=== PATIENT | female | born 1975 | race Caucasian/White ===

== ENCOUNTER 2016-11-17 07:34 | Emergency (ER) | payer SELFPAY ==
--- NOTE | 2016-11-17 10:10 | RAD ---
HISTORY: Headache COMPARISONS: March 09, 2005 TECHNIQUE: Multiple contiguous axial CT scans were obtained of the head without intravenous contrast. FINDINGS: HEMORRHAGE/INFARCT: There is no hemorrhage or acute infarct. MASSES/SHIFT: There is no mass or shift. EXTRA-AXIAL SPACES: There are no extra-axial fluid collections. SULCI AND VENTRICLES: The sulci and ventricles are normal in size and position for the patient's stated age. CEREBRUM: There are no focal parenchymal abnormalities. BRAINSTEM: There are no focal parenchymal abnormalities. CEREBELLUM: There are no focal parenchymal abnormalities. VESSELS: The vessels are grossly normal. PARANASAL SINUSES: The paranasal sinuses are clear. ORBITS: The orbits are unremarkable. BONES AND SOFT TISSUE: No bone or soft tissue abnormalities are noted. OTHER: None IMPRESSION: NO ACUTE INTRACRANIAL PATHOLOGY.
[2016-11-17] MEDS ORDERED: Acetaminophen TAB* 325 MG PO ONE (10:49)
[2016-11-17 11:14] VITALS: BP 121/78
--- NOTE | 2016-11-17 18:30 | ED ---
China Fowler SooYoung, scribed for Dionisio Chacon MD on 11/17/16 at 0947 . Head Injury - HPI Summary HPI Summary: A 41 y/o F presents to ED with c/o head trauma onset approx one week ago. Associated sx: swelling and contusion to front head, lightheadedness, feels off balance. Denies n/v, visual changes, neck pain. Pt rates the pain as 8 out of 10. - History Of Current Complaint Chief Complaint: EDHeadInjury Stated Complaint: HEADACE , INJURY AT WORK Time Seen by Provider: 11/17/16 09:43 Hx Obtained From: Patient Onset/Duration: Started Days Ago, Still Present Severity Currently: Moderate Severity Initially: Moderate Pain Intensity: 8 Pain Scale Used: 0-10 Numeric Location of Head Injury: Frontal Associated Signs And Symptoms: Swelling, Bruising, Other: - pos: lightheadedness , feels off balance; neg: n/v, visual changes, neck pain. - Allergies/Home Medications Allergies/Adverse Reactions: Allergies Allergy/AdvReac Type Severity Reaction Status Date / Time Penicillins [PCN] Allergy Hives Verified 10/01/15 06:39 PMH/Surg Hx/FS Hx/Imm Hx Previously Healthy: No Endocrine/Hematology History: Reports: Hx Diabetes - INSULIN DEPENDENT Cardiovascular History: Reports: Hx Angina, Hx Hypercholesterolemia, Other Cardiovascular Problems/Disorders - Irregular heart rhythm, pt seeing sales engineering manager tomorrow for follow-up Respiratory History: Reports: Hx Asthma, Hx Sleep Apnea Denies: Hx Chronic Obstructive Pulmonary Disease (COPD) GI History: Reports: Hx Gastroesophageal Reflux Disease - ON MEDS PT. STATES CONTROLLED, Other GI Disorders - Hx GERD Sensory History: Reports: Hx Contacts or Glasses Denies: Hx Hearing Aid Opthamlomology History: Reports: Hx Contacts or Glasses - Surgical History Hx Anesthesia Reactions: No Infectious Disease History: No Infectious Disease History: Denies: Traveled Outside the [place] in Last 30 Days - Family History Known Family History: Positive: Cardiac Disease - Social History Occupation: Employed Full-time Lives: Alone Alcohol Use: None Hx Substance Use: No Substance Use Type: Reports: None Hx Tobacco Use: Yes Smoking Status (MU): Former Smoker Review of Systems Negative: Other - neg: vision changes Negative: Vomiting, Nausea Positive: Edema - R-side of forehead. Negative: Other - neg: neck pain Neurological: Other - pos: lightheadedness, unsteady gait All Other Systems Reviewed And Are Negative: Yes Physical Exam - Summary Physical Exam Summary: VITAL SIGNS: Reviewed. GENERAL: Patient is a well-developed and nourished FEMALE who is lying comfortable in the stretcher. Patient is not in any acute respiratory distress. HEAD AND FACE: Resolving hematoma in R frontal area. No skull depressions. No sinus tenderness. EYES: PERRLA, EOMI x 2, No injected conjunctiva, no nystagmus. EARS: Hearing grossly intact. Ear canals and tympanic membranes are within normal limits. MOUTH: Oropharynx within normal limits. NECK: Supple, trachea is midline, no adenopathy, no JVD, no carotid bruit, no c- spine tenderness, neck with full ROM. CHEST: Symmetric, no tenderness at palpation LUNGS: Clear to auscultation bilaterally. No wheezing or crackles. CVS: Regular rate and rhythm, S1 and S2 present, no murmurs or gallops appreciated. ABDOMEN: Soft, non-tender. No signs of distention. No rebound, no guarding, and no masses palpated. Bowel sounds are normal. EXTREMITIES: FROM in all major joints, no edema, no cyanosis or clubbing. NEURO: Alert and oriented x 3. No acute neurological deficits. Speech is normal and follows commands. SKIN: Dry and warm Triage Information Reviewed: Yes Vital Signs On Initial Exam: Initial Vitals Temp Pulse Resp BP Pulse Ox 98.4 F 53 20 132/74 99 11/17/16 07:41 11/17/16 07:41 11/17/16 07:41 11/17/16 07:41 11/17/16 07:41 Vital Signs Reviewed: Yes Diagnostics - Vital Signs Vital Signs Temp Pulse Resp BP Pulse Ox 11/17/16 07:41 98.4 F 53 20 132/74 99 - Laboratory Lab Statement: Any lab studies that have been ordered have been reviewed, and results considered in the medical decision making process. - CT BRAIN CT Interpretation: No Acute Changes - IMPRESSION: No acute intracranial pathology. ED physician has reviewed this radiology report and agrees. CT Interpretation Completed By: Radiologist Head Injury Course/Dx Course Of Treatment: A 41 y/o F presents to ED with c/o head trauma onset approx one week ago. Associated sx: swelling and contusion to front head, lightheadedness, feels off balance. Denies n/v, visual changes, neck pain. Pt rates the pain as 8 out [address] Head CT is negative for acute intracranial pathology. Pt given Tylenol for pain and will be D/C home with f/u PCP. Given instruction for head contusion symptoms. She ambulated out of the ED. Pt is hemodynamically stable and A&Ox3. - Diagnoses Differential Diagnosis/HQI/PQRI: Cerebral Contusion, Concussion Without LOC, Contusion, Intracranial Bleed, Orbital Fracture, Skull Fracture Provider Diagnoses: Head contusion Discharge - Discharge Plan Condition: Stable Disposition: HOME Patient Education Materials: Scalp Contusion in Adults (ED) Referrals: Milly Fernandez MD [Primary Care Provider] - Additional Instructions: Use Tylenol for pain. Follow up with your primary care provider in 3 days. Please return to ED if you experience new or worsening symptoms. The documentation as recorded by the China dorman SooYoung accurately reflects the service I personally performed and the decisions made by me, Dionisio Chacon MD.
== END 2016-11-17 11:13 | disposition home or self-care (01) ==
LOC: ED 07:34
DX: S00.93XA Contusion of unspecified part of head, initial encounter (principal); R42 Dizziness and giddiness; X58.XXXA Exposure to other specified factors, initial encounter; Y93.9 Activity, unspecified; Y92.9 Unspecified place or not applicable
CPT/HCPCS: 70450; 99282; A9270-GY

== ENCOUNTER 2017-03-20 22:07 | Emergency (ER) | payer BC ==
[2017-03-20] MEDS ORDERED: NS 0.9% 1000 ML* 1,000 ML IV ONE (23:42)
[2017-03-20] MEDS ORDERED: Ketorolac INJ* 30 MG/ML 1 ML VIAL IV PUSH PRN (23:42)
[2017-03-21 00:15] LABS: ABS Basophils 0 10^3/ul (0-0.2); ABS Eosinophils 0.1 10^3/ul (0-0.6); ABS Lymphocytes 2.3 10^3/ul (1.0-4.8); ABS Monocytes 0.4 10^3/ul (0-0.8); ABS Neutrophils 2.1 10^3/ul (1.5-7.7); ABS Nucleated RBC 0 10^3/ul; Eosinophil % 1.7 % (0-6); Hematocrit 39 % (35-47); Hemoglobin 12.9 g/dl (12.0-16.0); Mean Corpuscular HGB Conc 33 g/dl (31-36); Mean Corpuscular Hemoglobin 31 pg (27-31); Mean Corpuscular Volume 92 fL (80-97); Mean Platelet Volume 9 um3 (7.4-10.4); Nucleated Red Blood Cells % 0.1; Platelet Count 195 10^3/ul (150-450); Red Blood Count 4.22 10^6/ul (4.0-5.4); Red Cell Distribution Width 14 % (10.5-15); White Blood Count 4.9 10^3/ul (3.5-10.8)
[2017-03-21 00:23] LABS: INR 0.96 (0.77-1.02)
[2017-03-21 00:31] LABS: EGFR Non-African American 109.1 (>60)
[2017-03-21] MEDS ORDERED: Iodixanol* (CONTRAST) 320 MG/ML 100 ML SDV IV ONE (00:46)
[2017-03-21 03:05] VITALS: BP 123/64
--- NOTE | 2017-03-21 09:46 | RAD ---
Indication: LEFT flank pain when breathing. Chest pain. Comparison: Chest CT of the same date and March 30, 2016 chest radiograph. Technique: Upright AP 0045 hours Report: Clear lungs and pleural spaces. Negative for pneumothorax. The heart, pulmonary vasculature, and mediastinal contours are unremarkable. Unremarkable osseous structures and soft tissue contours. IMPRESSION: No evidence for acute intrathoracic disease.
--- NOTE | 2017-03-21 09:54 | RAD ---
INDICATION: 1 week LEFT side pain following potential injury. Question pulmonary embolism. COMPARISON: Chest radiograph of the same date TECHNIQUE: Multidetector CT images were obtained from the lung apices to the upper abdomen with 81 mL Visipaque 320 IV contrast. Pulmonary angiogram protocol. Multiplanar reformation including with maximum intensity projection. REPORT: Minimal LEFT basilar dependent atelectasis. The lungs and pleural spaces are otherwise clear. Negative for pneumothorax. Asymmetric enlargement of the RIGHT thyroid lobe. Mild residual thymic tissue at the anterior mediastinum. 0.9 cm short axis precarinal lymph node within normal limits. Smaller bilateral hilar lymph nodes. Negative for thoracic lymphadenopathy. Negative for cardiomegaly or pericardial effusion. Normal diameter thoracic aorta with mild calcific plaque. No evidence for aortic dissection. No filling defects are identified from the main to the subsegmental pulmonary arteries to indicate presence of a pulmonary embolism. Unremarkable Limited images of the upper abdomen. No thoracic fractures or suspicious osseous lesions evident. No soft tissue plane hematoma evident. IMPRESSION: 1. No evidence for pulmonary embolism. 2. No evidence for pneumonia. Minimal LEFT basilar dependent subsegmental atelectasis. 3. Incidental note of asymmetric prominence of the RIGHT thyroid lobe. Consider follow-up nonemergent thyroid ultrasound for further assessment if not previously performed. No prior thyroid [place] [facility]
--- NOTE | 2017-03-21 19:58 | ED ---
Trung Fowler Tecjoon, scribed for Nicholas Chaves MD on 03/20/17 at 2343 . HPI Chest Pain - HPI Summary HPI Summary: This patient is a 41 year old female presenting to [facility] accompanied by with a chief complaint of left flank/chest pain since 1 week ago, worsening yesterday. Patient states the pain came " from moving something, think I might have chipped something". The pain is rated 8/10 in severity. Symptoms aggravated by deep breaths. Symptoms alleviated by nothing - History of Current Complaint Chief Complaint: EDChestWallPain Time Seen by Provider: 03/20/17 23:33 Hx Obtained From: Patient Onset/Duration: Started Weeks Ago - 1, Still Present, Worse Since - yesterday Timing: Constant Initial Severity: Moderate Current Severity: Moderate Pain Intensity: 8 Pain Scale Used: 0-10 Numeric Chest Pain Location: Left Lateral Aggravating Factor(s): Deep Breaths Alleviating Factor(s): Nothing - Additional Pertinent History Primary Care Physician: [id number] - Allergy/Home Medications Allergies/Adverse Reactions: Allergies Allergy/AdvReac Type Severity Reaction Status Date / Time Penicillins Allergy Hives Verified 03/20/17 23:48 PMH/Surg Hx/FS Hx/Imm Hx Previously Healthy: No Endocrine/Hematology History: Reports: Hx Diabetes - INSULIN DEPENDENT Denies: Hx Anticoagulant Therapy Cardiovascular History: Reports: Hx Angina, Hx Hypercholesterolemia, Other Cardiovascular Problems/Disorders - Irregular heart rhythm, pt seeing hospice clinical supervisor tomorrow for follow-up Respiratory History: Reports: Hx Asthma, Hx Sleep Apnea Denies: Hx Chronic Obstructive Pulmonary Disease (COPD) GI History: Reports: Hx Gastroesophageal Reflux Disease - ON MEDS PT. STATES CONTROLLED, Other GI Disorders - Hx GERD Sensory History: Reports: Hx Contacts or Glasses Denies: Hx Hearing Aid Opthamlomology History: Reports: Hx Contacts or Glasses - Surgical History Hx Anesthesia Reactions: No Infectious Disease History: No Infectious Disease History: Denies: Traveled Outside the [place] in Last 30 Days - Family History Known Family History: Positive: Cardiac Disease - Social History Lives: With Family Alcohol Use: None Hx Substance Use: No Substance Use Type: Reports: None Hx Tobacco Use: Yes Smoking Status (MU): Former Smoker Review of Systems Negative: Fever Positive: Chest Pain Positive: flank pain All Other Systems Reviewed And Are Negative: Yes Physical Exam - Summary Physical Exam Summary: VITAL SIGNS: Reviewed. GENERAL: Patient is a well-developed and nourished female who is lying comfortable in the stretcher. Patient is not in any acute respiratory distress. HEAD AND FACE: No signs of trauma. No ecchymosis, hematomas or skull depressions. No sinus tenderness. EYES: PERRLA, EOMI x 2, No injected conjunctiva, no nystagmus. EARS: Hearing grossly intact. Ear canals and tympanic membranes are within normal limits. MOUTH: Oropharynx within normal limits. NECK: Supple, trachea is midline, no adenopathy, no JVD, no carotid bruit, no c- spine tenderness, neck with full ROM. CHEST: Tenderness over left lower chest well LUNGS: Clear to auscultation bilaterally. No wheezing or crackles. CVS: Regular rate and rhythm, S1 and S2 present, no murmurs or gallops appreciated. ABDOMEN: Soft, non-tender. No signs of distention. No rebound no guarding, and no masses palpated. Bowel sounds are normal. EXTREMITIES: FROM in all major joints, no edema, no cyanosis or clubbing. NEURO: Alert and oriented x 3. No acute neurological deficits. Speech is normal and follows commands. SKIN: Dry and warm Triage Information Reviewed: Yes Vital Signs On Initial Exam: Initial Vitals Temp Pulse Resp BP Pulse Ox 98.0 F 51 16 113/70 99 03/20/17 22:10 03/20/17 22:10 03/20/17 22:10 03/20/17 22:10 03/20/17 22:10 Vital Signs Reviewed: Yes Diagnostics - Vital Signs Vital Signs Temp Pulse Resp BP Pulse Ox 03/20/17 22:10 98.0 F 51 16 113/70 99 - Laboratory Result Diagrams: 03/21/17 00:01 03/21/17 00:01 Lab Statement: Any lab studies that have been ordered have been reviewed, and results considered in the medical decision making process. - CT CT Chest CT Interpretation: No Acute Changes - CT Chest reveals, per radiologist, IMPRESSION: No Acute Process. ED Physician has reviewed this report. CT Interpretation Completed By: Radiologist - EKG 1546 Cardiac Rate: Bradycardia EKG Rhythm: Sinus Bradycardia - 52 BPM EKG Interpretation: Sinus Bradycardia, Normal axis. Normal interval. No ischemic changes Chest Pain Course/Dx - Course Course Of Treatment: This patient is a 41 year old female presenting to [facility] accompanied by with a chief complaint of left flank/chest pain since 1 week ago, worsening yesterday. Bloodwork Obtained. Urinalysis Obtained. In the ED course the patient was given Toradol, Iodixanol. Patient will be discharged with a diagnosis of chest wall pain and follow up with PCP in 3 days. The patient is agreeable with this plan. - Diagnoses Provider Diagnoses: Chest wall pain Discharge - Discharge Plan Condition: Stable Disposition: HOME Patient Education Materials: Chest Wall Pain (ED) Referrals: Milly Fernandez MD [Primary Care Provider] - 3 Days Additional Instructions: Patient will be discharged with chest wall pain. Patient is advised to follow up with PCP in 3 days. Return to the ED for new or worsening symptoms. The documentation as recorded by the Trung dorman Tecjoon accurately reflects the service I personally performed and the decisions made by Aanstacio demarco Abdul, MD.
== END 2017-03-21 03:12 | disposition home or self-care (01) ==
LOC: ED 22:07
DX: R07.89 Other chest pain (principal); Z87.891 Personal history of nicotine dependence; Z88.0 Allergy status to penicillin
CPT/HCPCS: 36415; 71045; 71275; 80053; 83735; 84484; 84702; 85025; 85379; 85610; 85730; 93005; 96361; 96374; 99284; Q9967

== ENCOUNTER 2017-06-15 07:47 | Emergency (ER) | payer BC ==
[2017-06-15] MEDS ORDERED: Lidocaine 2% VISCOUS* 15 ML UDC PO ONE (09:00)
[2017-06-15] MEDS ORDERED: Lidocaine 2% VISCOUS* 15 ML UDC ONE (09:00)
[2017-06-15 09:29] LABS: ABS Basophils 0 10^3/ul (0-0.2); ABS Eosinophils 0.1 10^3/ul (0-0.6); ABS Lymphocytes 1.9 10^3/ul (1.0-4.8); ABS Monocytes 0.5 10^3/ul (0-0.8); ABS Neutrophils 4.8 10^3/ul (1.5-7.7); ABS Nucleated RBC 0 10^3/ul; Eosinophil % 0.7 % (0-6); Hematocrit 38 % (35-47); Lymphocyte % 26.2 % (25-47); Mean Corpuscular HGB Conc 34 g/dl (31-36); Mean Corpuscular Hemoglobin 31 pg (27-31); Mean Corpuscular Volume 90 fL (80-97); Mean Platelet Volume 9.7 um3 (7.4-10.4); Nucleated Red Blood Cells % 0; Platelet Count 192 10^3/ul (150-450); Red Blood Count 4.19 10^6/ul (4.0-5.4); Red Cell Distribution Width 13 % (10.5-15); White Blood Count 7.3 10^3/ul (3.5-10.8)
[2017-06-15] MEDS ORDERED: NS 0.9% 1000 ML* 1,000 ML IV ONE (10:27)
--- NOTE | 2017-06-15 10:41 | ED ---
Throat Pain/Nasal Congestion - HPI Summary HPI Summary: Pt here w/ Rt upper dental pain x weeks. Facial swelling x 2 days. Denies fever , chills, N/V/D, difficulty breathing or swallowing. Poor dentition and hasn't been to denitist serafin while but is in the process of making an appt. Took excederin prior to arrival today. - History of Current Complaint Hx Obtained From: Patient, Family/Frame Tender - male partner <Emely Doyle - Last Filed: 06/15/17 11:35> <Emma Myrick - Last Filed: 06/17/17 20:45> - History of Current Complaint Chief Complaint: EDDentalPain Time Seen by Provider: 06/15/17 08:11 - Allergies/Home Medications Allergies/Adverse Reactions: Allergies Allergy/AdvReac Type Severity Reaction Status Date / Time Penicillins Allergy Hives Verified 06/15/17 07:48 Home Medications: Home Medications Aspirin EC TAB* [Ecotrin EC Low Dose 81 MG*] 81 mg PO DAILY 06/15/17 [History Confirmed 06/15/17] Multivitamins/Minerals TAB* [Theragran/minerals TAB*] 1 tab PO DAILY 06/15/17 [ History Confirmed 06/15/17] PMH/Surg Hx/FS Hx/Imm Hx Previously Healthy: Yes Endocrine/Hematology History: Reports: Hx Diabetes - INSULIN DEPENDENT, Hx Thyroid Disease - syntroid Denies: Hx Anticoagulant Therapy, Hx Anemia Cardiovascular History: Reports: Hx Angina, Hx Hypercholesterolemia, 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 STATES CONTROLLED, Other GI Disorders - Hx GERD History: Denies: Hx Dialysis, Hx Renal Disease Sensory History: Reports: Hx Contacts or Glasses Denies: Hx Hearing Aid Opthamlomology History: Reports: Hx Contacts or Glasses - Surgical History Hx Anesthesia Reactions: No Infectious Disease History: No Infectious Disease History: Denies: Traveled Outside the [place] in Last 30 Days - Family History Known Family History: Positive: Cardiac Disease - Social History Occupation: Employed Full-time - [employer] Lives: With Family - male partner Alcohol Use: None Hx Substance Use: No Substance Use Type: Reports: None Hx Tobacco Use: Yes - not currently Smoking Status (MU): Former Smoker <Emely Doyle - Last Filed: 06/15/17 11:35> Review of Systems Constitutional: Negative Negative: Fever, Chills, Fatigue Eyes: Negative Positive: Dental Pain. Negative: Sore Throat, Ear Ache, Nasal Discharge Cardiovascular: Negative Respiratory: Negative Gastrointestinal: Negative Negative: Vomiting, Nausea Positive: no symptoms reported Musculoskeletal: Negative Skin: Negative Neurological: Negative Positive: Anxious All Other Systems Reviewed And Are Negative: Yes <Emely Doyle - Last Filed: 06/15/17 11:35> Physical Exam Triage Information Reviewed: Yes Vital Signs On Initial Exam: Initial Vitals Temp Pulse Resp BP Pulse Ox 98.0 F 62 14 126/71 100 06/15/17 07:50 06/15/17 07:50 06/15/17 07:50 06/15/17 07:50 06/15/17 07:50 Vital Signs Reviewed: Yes Appearance: Positive: Pain Distress - mild to moderate; generalized pallor; Skin: Positive: Warm, Skin Color Reflects Adequate Perfusion, Dry - no erythema over Rt side of face Eyes: Positive: Normal, EOMI, Conjunctiva Clear. Negative: Conjunctiva Inflammed, Discharge ENT: Positive: Hearing grossly normal, Pharynx normal, TMs normal, Uvula midline. Negative: Nasal congestion, Nasal drainage, Tonsillar swelling, Trismus, Muffled voice Dental: Positive: Gross Decay/Caries @ - multiple teeth, Abscess @ - Rt upper gingival area - multiple decaying teeth in the area Neck: Positive: Supple, Nontender, No Lymphadenopathy Respiratory/Lung Sounds: Positive: Clear to Auscultation, Breath Sounds Present. Negative: Stridor Cardiovascular: Positive: Normal, RRR <Emely Doyle - Last Filed: 06/15/17 11:35> Vital Signs On Initial Exam: Initial Vitals Temp Pulse Resp BP Pulse Ox 36.7 C 62 14 126/71 100 06/15/17 07:50 06/15/17 07:50 06/15/17 07:50 06/15/17 07:50 06/15/17 07:50 <Emma Myrick - Last Filed: 06/17/17 20:45> Diagnostics - Vital Signs Vital Signs Temp Pulse Resp BP Pulse Ox 06/15/17 10:23 40 90/39 99 06/15/17 10:22 34 99 06/15/17 10:20 68/36 06/15/17 07:50 98.0 F 62 14 126/71 100 - Laboratory Lab Results: Lab Results 06/15/17 06/15/17 06/15/17 Range/Units 09:15 09:15 09:15 WBC 7.3 (3.5-10.8) 10^3/ul RBC 4.19 (4.0-5.4) 10^6/ul Hgb 13.0 (12.0-16.0) g/dl Hct 38 (35-47) % MCV 90 (80-97) fL MCH 31 (27-31) pg MCHC 34 (31-36) g/dl RDW 13 (10.5-15) % Plt Count 192 (150-450) 10^3/ul MPV 9.7 (7.4-10.4) um3 Neut % (Auto) 66.1 (38-83) % Lymph % (Auto) 26.2 (25-47) % Ripley % (Auto) 6.5 (0-7) % Eos % (Auto) 0.7 (0-6) % Baso % (Auto) 0.5 (0-2) % Absolute Neuts (auto) 4.8 (1.5-7.7) 10^3/ul Absolute Lymphs (auto) 1.9 (1.0-4.8) 10^3/ul Absolute Monos (auto) 0.5 (0-0.8) 10^3/ul Absolute Eos (auto) 0.1 (0-0.6) 10^3/ul Absolute Basos (auto) 0 (0-0.2) 10^3/ul Absolute Nucleated RBC 0 10^3/ul Nucleated RBC % 0 C-Reactive Protein 6.07 H (< 5.00) mg/L Beta HCG, Quant < 0.60 mIU/mL Result Diagrams: 06/15/17 09:15 Lab Statement: Any lab studies that have been ordered have been reviewed, and results considered in the medical decision making process. <Emely Doyle - Last Filed: 06/15/17 11:35> - Vital Signs Vital Signs Temp Pulse Resp BP Pulse Ox 06/15/17 12:14 36.9 C 65 16 149/84 100 06/15/17 12:07 66 149/84 100 06/15/17 12:05 52 150/82 100 06/15/17 12:00 54 06/15/17 11:28 69 146/87 100 06/15/17 11:18 49 137/103 100 06/15/17 11:08 51 142/70 06/15/17 11:00 46 100 06/15/17 10:58 48 150/77 100 06/15/17 10:31 55 151/78 06/15/17 10:23 40 90/39 99 06/15/17 10:22 34 99 06/15/17 10:20 68/36 06/15/17 07:50 36.7 C 62 14 126/71 100 - Laboratory Lab Results: Lab Results 06/15/17 06/15/17 06/15/17 Range/Units 09:15 09:15 09:15 WBC 7.3 (3.5-10.8) 10^3/ul RBC 4.19 (4.0-5.4) 10^6/ul Hgb 13.0 (12.0-16.0) g/dl Hct 38 (35-47) % MCV 90 (80-97) fL MCH 31 (27-31) pg MCHC 34 (31-36) g/dl RDW 13 (10.5-15) % Plt Count 192 (150-450) 10^3/ul MPV 9.7 (7.4-10.4) um3 Neut % (Auto) 66.1 (38-83) % Lymph % (Auto) 26.2 (25-47) % Ripley % (Auto) 6.5 (0-7) % Eos % (Auto) 0.7 (0-6) % Baso % (Auto) 0.5 (0-2) % Absolute Neuts (auto) 4.8 (1.5-7.7) 10^3/ul Absolute Lymphs (auto) 1.9 (1.0-4.8) 10^3/ul Absolute Monos (auto) 0.5 (0-0.8) 10^3/ul Absolute Eos (auto) 0.1 (0-0.6) 10^3/ul Absolute Basos (auto) 0 (0-0.2) 10^3/ul Absolute Nucleated RBC 0 10^3/ul Nucleated RBC % 0 C-Reactive Protein 6.07 H (< 5.00) mg/L Beta HCG, Quant < 0.60 mIU/mL Result Diagrams: 06/15/17 09:15 Lab Statement: Any lab studies that have been ordered have been reviewed, and results considered in the medical decision making process. <Emma Myrick - Last Filed: 06/17/17 20:45> EENT Course/Dx - Course Course Of Treatment: Pt here for dental pain/swelling. Abscess identified. Topical lidocaine placed then <1cc 1% lidocaine injected into gingival area - pt was bearing down and did not tolerate well - tried to move my hand but no additional injury to area was observed (bleeding after injection was minimal nad she stopped bleeding within minutes). Shortly after injection she became lightheaded, diaphoretic, nauseous then felt urge to move her bowels. Blood pressure and heart rate dropped and so she was sent back into a flat lying position with a cool compress. An IV line was started and she received normal saline wide open. Additionally an EKG was ordered which revealed bradycardia but no changes from previous EKG. She improved within 10 minutes - color in her face returned, blood pressure increased as well as heart rate although she apparently always has low heart rate. She was able to sit up without dizziness , lightheadedness, nausea and reports she feels much better after resting. Retested the area and her gingiva to see if she was still anesthetized however she feels sharp so opted to avoid incision and drainage today. Cannot give her NSAIDs due to her bariatric status. Will start clindamycin along with chlorhexidine and provide tramadol for pain as she's had this in the past without difficulty. She does not appear to have any underlying cardiac pathology to have triggered her event today in fact is suspected that this was a response from a vasovagal reaction to her pain. <Emely Doyle - Last Filed: 06/15/17 11:35> <Emma Myrick - Last Filed: 06/17/17 20:45> - Diagnoses Provider Diagnoses: Pain, dental Discharge - Sign-Out/Discharge Documenting (check all that apply): Discharge/Admit/Transfer - Billing Disposition and Condition Condition: STABLE Disposition: HOME <Emely Doyle - Last Filed: 06/15/17 11:35> - Billing Disposition and Condition Condition: STABLE Disposition: HOME <Emma Myrick - Last Filed: 06/17/17 20:45> - Discharge Plan Condition: Stable Disposition: HOME Prescriptions: Chlorhexidine MOUTHWASH 0.12%* [Peridex Mouth Wash 0.12%*] 15 ml MT BID #1 btl Clindamycin HCl 300 mg PO Q8HR #30 capsule traMADol TAB* [Ultram*] 50 mg PO BID PRN #8 tab MDD 2 PRN Reason: Pain Patient Education Materials: Dental Abscess (ED) Forms: *Work Release Referrals: Milly Fernandez MD [Primary Care Provider] - Additional Instructions: You appear to have a dental abscess in the right upper side of her mouth. An incision and drainage technique was attempted today however he did not tolerate this well. Oral antibiotics in a pill form as well as an oral mouthwash have been sent to your pharmacy. Please start treatment and complete as directed. It is also important that you follow-up with a dentist as soon as possible to better address this issue. A list of contacts in the area has been provided for you today. They've also been given a pain medication - use as directed only. If you develop side effects such as fatigue, lightheadedness, dizziness, do not take this medication any longer. He also experienced an episode of lightheadedness with low blood pressure, low heart rate here today. Examination reveals you had a vasovagal response to your pain. It is important that she rest and stay hydrated for the rest of the day. In the future, it is important that she try breathing techniques when you have pain or stress to reduce the risk of this happening again. *If you develop lightheadedness, dizziness, nausea, sweating, chest pain, shortness of breath, or syncope, return to the emergency department.
[2017-06-15 12:14] VITALS: BP 149/84
== END 2017-06-15 12:14 | disposition home or self-care (01) ==
LOC: ED 07:47
DX: K08.89 Other specified disorders of teeth and supporting structures (principal); Z87.891 Personal history of nicotine dependence; F41.9 Anxiety disorder, unspecified; E11.9 Type 2 diabetes mellitus without complications; Z79.4 Long term (current) use of insulin
CPT/HCPCS: 36415; 84702; 85025; 86140; 93005; 99284

== ENCOUNTER 2018-02-21 18:27 | Emergency (ER) | payer BC, OTHER ==
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
[2018-02-21 20:41] VITALS: BP 0/0
== END 2018-02-21 20:39 | disposition home or self-care (01) ==
LOC: ED 18:27
DX: S20.219A Contusion of unspecified front wall of thorax, initial encounter (principal); S80.12XA Contusion of left lower leg, initial encounter; S80.11XA Contusion of right lower leg, initial encounter; S40.022A Contusion of left upper arm, initial encounter; V43.52XA Car driver injured in collision with other type car in traffic accident, initial encounter; Y92.410 Unspecified street and highway as the place of occurrence of the external cause; R06.00 Dyspnea, unspecified; E11.9 Type 2 diabetes mellitus without complications; Z79.4 Long term (current) use of insulin; E07.9 Disorder of thyroid, unspecified; K21.9 Gastro-esophageal reflux disease without esophagitis; Z88.0 Allergy status to penicillin; Z87.891 Personal history of nicotine dependence
CPT/HCPCS: 71046; 99282

== ENCOUNTER 2018-04-23 23:40 | Emergency (ER) | payer BC, OTHER ==
[2018-04-24] MEDS ORDERED: Ibuprofen TAB* 400 MG PO ONE (01:04)
--- NOTE | 2018-04-24 01:07 | ED ---
Throat Pain/Nasal Congestion - HPI Summary HPI Summary: This patient is a 42 year old F presenting to ED with a chief complaint of sore throat since 0900 the morning of 04/23/18. The CC is described as burning with PO. The pain worsened around 1600 yesterday. The patient rates the pain 10/10 in severity. Symptoms aggravated by PO. Symptoms alleviated by nothing. Patient reports rhinorrhea (secondary to allergies), nonproductive cough, and chills. Patient denies SOB and fever. - History of Current Complaint Chief Complaint: EDThroatPain Time Seen by Provider: 04/24/18 01:00 Hx Obtained From: Patient Onset/Duration: Sudden Onset, Lasting Days - since 0900 the morning of 04/23/18, Still Present Severity: Severe - 10/10 Cough: Nonproductive - Allergies/Home Medications Allergies/Adverse Reactions: Allergies Allergy/AdvReac Type Severity Reaction Status Date / Time Penicillins Allergy Hives Verified 04/23/18 23:52 PMH/Surg Hx/FS Hx/Imm Hx Endocrine/Hematology History: Reports: Hx Diabetes - INSULIN DEPENDENT, Hx Thyroid Disease - syntroid Denies: Hx Anticoagulant Therapy, Hx Anemia Cardiovascular History: Reports: Hx Angina, Hx Hypercholesterolemia, 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 STATES CONTROLLED, Other GI Disorders - Hx GERD History: Denies: Hx Dialysis, Hx Renal Disease Sensory History: Reports: Hx Contacts or Glasses Denies: Hx Hearing Aid Opthamlomology History: Reports: Hx Contacts or Glasses - Surgical History Hx Anesthesia Reactions: No - Immunization History Date of Tetanus Vaccine: unk Date of Influenza Vaccine: fall 2017 Infectious Disease History: No Infectious Disease History: Denies: Traveled Outside the [place] in Last 30 Days - Family History Known Family History: Positive: Cardiac Disease - Social History Alcohol Use: None Hx Substance Use: No Substance Use Type: Reports: None Hx Tobacco Use: Yes - not currently Smoking Status (MU): Former Smoker Review of Systems Positive: Chills. Negative: Fever Positive: Sore Throat, Other - rhinorrhea Positive: Cough - nonproductive. Negative: Shortness Of Breath All Other Systems Reviewed And Are Negative: Yes Physical Exam - Summary Physical Exam Summary: Appearance: Well-appearing, Well-nourished, lying in bed comfortably Skin: Warm, dry, no obvious rash Eyes: sclera anicteric, no conjunctival pallor ENT: mucous membranes moist, minimal pharyngeal erythema with no exudate. Neck: Supple, nontender Respiratory: Clear to auscultation, no signs of respiratory distress Cardiovascular: Normal S1, S2. No murmurs. Normal distal pulses in tibial and radial bilaterally. Abdomen: Soft, nontender, normal active bowel sounds present Musculoskeletal: Normal, Strength/ROM Intact Neurological: A&Ox3, awake and alert, mentation is normal, speech is fluent and appropriate Psychiatric: affect is normal, does not appear anxious or depressed Triage Information Reviewed: Yes Vital Signs On Initial Exam: Initial Vitals Temp Pulse Resp BP Pulse Ox 100.3 F 84 16 155/90 99 04/23/18 23:51 04/23/18 23:51 04/23/18 23:51 04/23/18 23:51 04/23/18 23:51 Vital Signs Reviewed: Yes Diagnostics - Vital Signs Vital Signs Temp Pulse Resp BP Pulse Ox 04/23/18 23:51 100.3 F 84 16 155/90 99 - Laboratory Lab Statement: Any lab studies that have been ordered have been reviewed, and results considered in the medical decision making process. EENT Course/Dx - Course Assessment/Plan: This patient is a 42 year old F presenting to ED with a chief complaint of sore throat since 0900 the morning of 04/23/18. In the ED course, the patient was given Motrin and a mouth wash. The patient is negative for strep. This patient will be discharged with dx of pharyngitis. Patient understands and agrees with this plan. - Differential Diagnoses Differential Diagnoses: Other - pharyngitis - Diagnoses Provider Diagnoses: Pharyngitis Discharge - Sign-Out/Discharge Documenting (check all that apply): Patient Departure - discharge Patient Received Moderate/Deep Sedation with Procedure: No - Discharge Plan Condition: Good Disposition: HOME Prescriptions: Magic Mouth Was-FEMI/MAAL/LIDO* 5 ml SWISH SWAL QID PRN #60 ml PRN Reason: Sore Throat Patient Education Materials: Pharyngitis (ED) Referrals: Milly Fernandez MD [Primary Care Provider] - 4 Days (if not better) - Billing Disposition and Condition Condition: GOOD Disposition: Home - Attestation Statements Document Initiated by Katie: Yes Documenting Scribe: Haresh Nino Provider For Whom Katie is Documenting (Include Credential): Dallas Aceves MD Scribshahbaz Attestation: Haresh Fowler, scribed for Dallas Aceves MD on 04/30/18 at 1924. Scribe Documentation Reviewed: Yes Provider Attestation: The documentation as recorded by the Haresh dorman accurately reflects the service I personally performed and the decisions made by me, Dallas Aceves MD Status of Scribe Document: Viewed
[2018-04-24 01:54] VITALS: BP 141/58
[2018-04-24] MEDS ORDERED: Magic Mouth Was-BEN/MAAL/LIDO SWISH SWAL SCH (02:00)
== END 2018-04-24 01:51 | disposition home or self-care (01) ==
LOC: ED 23:40
DX: J02.9 Acute pharyngitis, unspecified (principal); Z88.0 Allergy status to penicillin; E11.9 Type 2 diabetes mellitus without complications; Z79.4 Long term (current) use of insulin; Z87.891 Personal history of nicotine dependence
CPT/HCPCS: 87651; 99282; A9270-GY

== ENCOUNTER 2018-09-22 15:01 | Emergency (ER) | payer BC ==
[2018-09-22 16:59] LABS: ABS Eosinophils 0.1 10^3/ul (0-0.6); ABS Lymphocytes 1.9 10^3/ul (1.0-4.8); ABS Monocytes 0.4 10^3/ul (0-0.8); ABS Neutrophils 3.7 10^3/ul (1.5-7.7); Eosinophil % 1.4 %; Hematocrit 39 % (35-47); Lymphocyte % 30.8 %; Mean Corpuscular HGB Conc 33 g/dL (31-36); Mean Corpuscular Hemoglobin 30 pg (27-31); Mean Corpuscular Volume 91 fL (80-97); Mean Platelet Volume 8.8 fL (7.4-10.4); Platelet Count 188 10^3/uL (150-450); Red Blood Count 4.32 10^6 /uL (3.70-4.87); Red Cell Distribution Width 13 % (10-15); White Blood Count 6.1 10^3/uL (3.5-10.8)
[2018-09-22 17:17] LABS: Albumin/Globulin Ratio 1.3 (1-3); BUN/Creatinine Ratio 16.7 (8-20); Calcium 9.1 mg/dL (8.6-10.3); EGFR Non-African American 87.6 (>60); Potassium 4.4 mmol/L (3.5-5.0); Total Bilirubin 0.4 mg/dL (0.2-1.0)
[2018-09-22 17:23] LABS: HCG Pregnancy 0.6 mIU/mL
[2018-09-22 17:55] LABS: Urine Appearance Clear; Urine Bacteria Absent (Absent); Urine Bilirubin Negative (Negative); Urine Blood Negative (Negative); Urine Color Yellow; Urine Glucose Negative (Negative); Urine Ketones Negative (Negative); Urine Nitrite Negative (Negative); Urine Protein Negative (Negative); Urine Red Blood Cell Trace(0-2/hpf) (Absent); Urine Specific Gravity 1.017 (1.010-1.030); Urine Squamous Epithelial Cell Present (Absent); Urine Urobilinogen Positive (Negative); Urine White Blood Cell Trace(0-5/hpf) (Absent)
[2018-09-22 17:58] LABS: TSH (Thyroid Stimulating Horm) 0.79 mcIU/mL (0.34-5.60)
--- NOTE | 2018-09-22 18:50 | ED ---
Syncope/Near Syncope - HPI Summary HPI Summary: 43-year-old female presents with complaints of intermittent episodes of dizziness for the past 5 days. Patient reports that on 09/16/2018 she got up in the morning to use the bathroom and as she was walking to the bathroom she became lightheaded and then "blacked out" for just a second. States she was able to lower herself to the ground when this occurred and that she has full recollection of events immediately prior to and after the episode. States symptoms lasted a couple minutes and then she was able to get up and continue bathroom. States she has continued to have 1 or 2 intermittent episodes of lightheadedness that typically occur when she is changing positions. 2 days ago had one episode of nausea and vomiting associated with the lightheadedness. Patient also reports a brief episode of left lower quadrant cramping today that lasted for a couple minutes. Patient states she has not been drinking fluids well for the last few days. Last menstrual period was 2 weeks ago. Denies fever, chills, headache, ear pain, tinnitus, vertigo, visual disturbances, facial droop, slurred or difficulty speaking, numbness, tingling, or weakness of her extremities, chest pain, palpitations, diaphoresis, or diarrhea. 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 STATES CONTROLLED, Other GI Disorders - Hx GERD History: Denies: Hx Dialysis, Hx Renal Disease Sensory History: Reports: Hx Contacts or Glasses Denies: Hx Hearing Aid Opthamlomology History: Reports: Hx Contacts or Glasses Neurological History: Denies: Hx CVA, Hx Migraine - Surgical History Hx Anesthesia Reactions: No - Immunization History Date of Tetanus Vaccine: unk Date of Influenza Vaccine: fall 2017 Infectious Disease History: No Infectious Disease History: Denies: Traveled Outside the [place] in Last 30 Days - Family History Known Family History: Positive: Cardiac Disease - Social History Occupation: Employed Full-time Lives: Alone Alcohol Use: None Hx Substance Use: No Substance Use Type: Reports: None Hx Tobacco Use: Yes - not currently Smoking Status (MU): Former Smoker Review of Systems Negative: Chills, Skin Diaphoresis Negative: Photophobia, Blurred Vision, Diplopia ENT: Negative Negative: Palpitations, Chest Pain Negative: Shortness Of Breath Positive: Vomiting, Nausea Genitourinary: Negative Musculoskeletal: Negative Skin: Negative Positive: Syncope. Negative: Headache, Weakness, Paresthesia, Numbness, Slurred Speech All Other Systems Reviewed And Are Negative: Yes Physical Exam - Summary Physical Exam Summary: GENERAL APPEARANCE: Well developed, well nourished, alert and cooperative, and appears to be in no acute distress. HEAD: Atraumatic. Normocephalic. EYES: Conjunctiva clear. No drainage. PERRL, EOM intact. Vision is grossly intact. EARS: External auditory canals and tympanic membranes clear, hearing grossly intact. NOSE: No nasal discharge. THROAT: Pharynx normal. No tonsilar inflammation, swelling, exudate, or lesions. Uvula midline. Teeth and gingiva in overall poor condition. NECK: Neck supple, non-tender without lymphadenopathy. CARDIAC: Normal S1 and S2. No S3, S4 or murmurs. Rhythm is regular. There is no peripheral edema, cyanosis or pallor. Extremities are warm and well perfused. Capillary refill is less than 2 seconds. Peripheral pulses intact. LUNGS: Clear to auscultation without rales, rhonchi, wheezing or diminished breath sounds. ABDOMEN: Positive bowel sounds. Soft, nondistended, nontender. No guarding or rebound. No masses or hepatosplenomegally. MUSKULOSKELETAL: ROM intact to all extremities. No joint erythema or tenderness. Normal muscular development. Normal gait. NEUROLOGICAL: CN II-XII intact. Strength and sensation symmetric and intact throughout. Reflexes 2+ throughout. SKIN: Skin normal color, texture and turgor with no lesions or eruptions. Triage Information Reviewed: Yes Vital Signs On Initial Exam: Initial Vitals Temp Pulse Resp BP Pulse Ox 98.2 F 63 16 132/63 96 09/22/18 15:04 09/22/18 15:04 09/22/18 15:04 09/22/18 15:04 09/22/18 15:04 Vital Signs Reviewed: Yes Diagnostics - Vital Signs Vital Signs Temp Pulse Resp BP Pulse Ox 09/22/18 17:32 70 113/60 09/22/18 16:47 96.9 F 51 16 113/73 98 09/22/18 15:04 98.2 F 63 16 132/63 96 - Laboratory Lab Results: Lab Results 09/22/18 09/22/18 09/22/18 Range/Units 16:51 16:51 16:51 WBC 6.1 (3.5-10.8) 10^3/uL RBC 4.32 (3.70-4.87) 10^6 /uL Hgb 13.0 (12.0-16.0) g/dL Hct 39 (35-47) % MCV 91 (80-97) fL MCH 30 (27-31) pg MCHC 33 (31-36) g/dL RDW 13 (10-15) % Plt Count 188 (150-450) 10^3/uL MPV 8.8 (7.4-10.4) fL Neut % (Auto) 61.2 % Lymph % (Auto) 30.8 % [place] % (Auto) 5.8 % Eos % (Auto) 1.4 % Baso % (Auto) 0.8 % Absolute Neuts (auto) 3.7 (1.5-7.7) 10^3/ul Absolute Lymphs (auto) 1.9 (1.0-4.8) 10^3/ul Absolute Monos (auto) 0.4 (0-0.8) 10^3/ul Absolute Eos (auto) 0.1 (0-0.6) 10^3/ul Absolute Basos (auto) 0.0 (0-0.2) 10^3/ul Absolute Nucleated RBC 0.0 10^3/ul Nucleated RBC % 0.0 Sodium 138 (135-145) mmol/L Potassium 4.4 (3.5-5.0) mmol/L Chloride 107 (101-111) mmol/L Carbon Dioxide 27 (22-32) mmol/L Anion Gap 4 (2-11) mmol/L BUN 12 (6-24) mg/dL Creatinine 0.72 (0.51-0.95) mg/dL Est GFR ( Amer) 106.0 (>60) Est GFR (Non-Af Amer) 87.6 (>60) BUN/Creatinine Ratio 16.7 (8-20) Glucose 135 H (70-100) mg/dL Lactic Acid 1.1 (0.5-2.0) mmol/L Calcium 9.1 (8.6-10.3) mg/dL Magnesium 2.0 (1.9-2.7) mg/dL Total Bilirubin 0.40 (0.2-1.0) mg/dL AST 15 (13-39) U/L ALT 13 (7-52) U/L Alkaline Phosphatase 77 (34-104) U/L Troponin I 0.00 (<0.04) ng/mL Total Protein 7.0 (6.4-8.9) g/dL Albumin 4.0 (3.2-5.2) g/dL Globulin 3.0 (2-4) g/dL Albumin/Globulin Ratio 1.3 (1-3) TSH 0.79 (0.34-5.60) mcIU/mL Beta HCG, Quant 0.60 mIU/mL Urine Color Urine Appearance Urine pH (5-9) Ur Specific [place] (1.010-1.030) Urine Protein (Negative) Urine Ketones (Negative) Urine Blood (Negative) Urine Nitrate (Negative) Urine Bilirubin (Negative) Urine Urobilinogen (Negative) Ur Leukocyte Esterase (Negative) Urine WBC (Auto) (Absent) Urine RBC (Auto) (Absent) Ur Squamous Epith Cells (Absent) Urine Bacteria (Absent) Urine Glucose (Negative) 09/22/18 Range/Units 17:40 WBC (3.5-10.8) 10^3/uL RBC (3.70-4.87) 10^6 /uL Hgb (12.0-16.0) g/dL Hct (35-47) % MCV (80-97) fL MCH (27-31) pg MCHC (31-36) g/dL RDW (10-15) % Plt Count (150-450) 10^3/uL MPV (7.4-10.4) fL Neut % (Auto) % Lymph % (Auto) % [place] % (Auto) % Eos % (Auto) % Baso % (Auto) % Absolute Neuts (auto) (1.5-7.7) 10^3/ul Absolute Lymphs (auto) (1.0-4.8) 10^3/ul Absolute Monos (auto) (0-0.8) 10^3/ul Absolute Eos (auto) (0-0.6) 10^3/ul Absolute Basos (auto) (0-0.2) 10^3/ul Absolute Nucleated RBC 10^3/ul Nucleated RBC % Sodium (135-145) mmol/L Potassium (3.5-5.0) mmol/L Chloride (101-111) mmol/L Carbon Dioxide (22-32) mmol/L Anion Gap (2-11) mmol/L BUN (6-24) mg/dL Creatinine (0.51-0.95) mg/dL Est GFR ( Amer) (>60) Est GFR (Non-Af Amer) (>60) BUN/Creatinine Ratio (8-20) Glucose (70-100) mg/dL Lactic Acid (0.5-2.0) mmol/L Calcium (8.6-10.3) mg/dL Magnesium (1.9-2.7) mg/dL Total Bilirubin (0.2-1.0) mg/dL AST (13-39) U/L ALT (7-52) U/L Alkaline Phosphatase (34-104) U/L Troponin I (<0.04) ng/mL Total Protein (6.4-8.9) g/dL Albumin (3.2-5.2) g/dL Globulin (2-4) g/dL Albumin/Globulin Ratio (1-3) TSH (0.34-5.60) mcIU/mL Beta HCG, Quant mIU/mL Urine Color Yellow Urine Appearance Clear Urine pH 6.0 (5-9) Ur Specific [place] 1.017 (1.010-1.030) Urine Protein Negative (Negative) Urine Ketones Negative (Negative) Urine Blood Negative (Negative) Urine Nitrate Negative (Negative) Urine Bilirubin Negative (Negative) Urine Urobilinogen Positive A (Negative) Ur Leukocyte Esterase Trace A (Negative) Urine WBC (Auto) Trace(0-5/hpf) (Absent) Urine RBC (Auto) Trace(0-2/hpf) (Absent) Ur Squamous Epith Cells Present A (Absent) Urine Bacteria Absent (Absent) Urine Glucose Negative (Negative) Result Diagrams: 09/22/18 16:51 09/22/18 16:51 Lab Statement: Any lab studies that have been ordered have been reviewed, and results considered in the medical decision making process. - Radiology No standard instances Radiology Interpretation Completed By: Radiologist Summary of Radiographic Findings: Order Information: CHEST PA LAT 2 VWS. Accession Number: [id number]. CPT: 59723. INDICATION: Chest pain and dizziness. COMPARISON: February 21, 2018 chest radiograph. TECHNIQUE: Dual- energy PA and lateral views of the chest were obtained. FINDINGS: The lungs are clear. There is no pleural effusion. The cardiomediastinal silhouette is within normal limits. The upper abdominal contents are normal. Osseous structures are unremarkable. IMPRESSION: No acute cardiopulmonary process by radiograph. - EKG No standard instances Cardiac Rate: Bradycardia - Rate 55 EKG Rhythm: Sinus Rhythm ST Segment: Normal Ectopy: None EKG Comparison: No Significant Change - Compared to EKg from 06/15/2017 Course/Dx Course Of Treatment: 43-year-old female presents with complaints of intermittent episodes of dizziness for the past 5 days. Patient reports that on 09/16/2018 she got up in the morning to use the bathroom and as she was walking to the bathroom she became lightheaded and then "blacked out" for just a second. States she was able to lower herself to the ground when this occurred and that she has full recollection of events immediately prior to and after the episode. States symptoms lasted a couple minutes and then she was able to get up and continue bathroom. States she has continued to have 1 or 2 intermittent episodes of lightheadedness that typically occur when she is changing positions. 2 days ago had one episode of nausea and vomiting associated with the lightheadedness. Patient also reports a brief episode of left lower quadrant cramping today that lasted for a couple minutes. Patient states she has not been drinking fluids well for the last few days. Last menstrual period was 2 weeks ago. Denies fever, chills, headache, ear pain, tinnitus, vertigo, visual disturbances, facial droop, slurred or difficulty speaking, numbness, tingling, or weakness of her extremities, chest pain, palpitations, diaphoresis, or diarrhea. Afebrile. Vital signs stable. Orthostatic vital signs were normal however patient did report feeling slightly lightheaded upon standing. Patient was neurologically intact and had an overall unremarkable exam. EKG showed sinus bradycardia without ectopy, ST elevation, or T-wave abnormalities and was essentially unchanged when compared to EKG from 06/15/2017. Chest x-ray showed no acute cardiopulmonary pathology. CBC and CMP were essentially normal. Troponin was 0.00. Serum negative. Discussed findings with the patient. With a normal neurological exam and her reports of lightheadedness with changes in position I suspect that even with the normal orthostatic vitals there may be some mild orthostasis involved with her symptoms. Recommending conservative treatment at this time including rest and pushing fluids. She is to follow-up with her primary care provider in one to 2 days for recheck of her symptoms. Anticipatory guidance and warning symptoms were reviewed with the patient. Verbalizes understanding and agrees with plan of care. - Diagnoses Differential Diagnosis/HQI/PQRI: Positive: Cerebral Vascular Accident, Dysrhythmia, Ectopic , Hypovolemia, Transient Ischemic Attack, Vasovagal Episode Provider Diagnoses: Syncope Discharge - Sign-Out/Discharge Documenting (check all that apply): Patient Departure Patient Received Moderate/Deep Sedation with Procedure: No - Discharge Plan Condition: Stable Disposition: HOME Patient Education Materials: Syncope (ED) Referrals: Milly Fernandez MD [Primary Care Provider] - 1 Day Additional Instructions: The EKG and chest x-ray performed in the emergency room today were normal and the lab work was stable. Your exam was also normal. I suspect that your symptoms are likely from some mild dehydration. Get plenty of rest. Be sure to push fluids. Follow-up with your primary care provider in 1-2 days for recheck of her symptoms. Return to the emergency room if you had a severe headache, visual disturbances, facial droop, slurring or difficulty speaking, weakness, numbness, or tingling in the arms or legs especially on one side of her body, seizure-like activity, chest pain, feeling as if her heart is racing or skipping beats, or any worsening of symptoms. - Billing Disposition and Condition Condition: STABLE Disposition: Home - Attestation Statements Provider Attestation: I was available for consultation for this patient. I did not evaluate the patient or participate in any medical decision making or disposition decisions unless I am specifically named in the chart as having consulted on the patient. If I have consulted on the patient, please see my own ED note on the patient encounter. Kevin Sahni MD
[2018-09-22 19:38] VITALS: BP 0/0
== END 2018-09-22 19:36 | disposition home or self-care (01) ==
LOC: ED 15:01
DX: R55 Syncope and collapse (principal); E11.9 Type 2 diabetes mellitus without complications; E07.9 Disorder of thyroid, unspecified; E78.00 Pure hypercholesterolemia, unspecified; K21.9 Gastro-esophageal reflux disease without esophagitis; Z87.891 Personal history of nicotine dependence; Z79.4 Long term (current) use of insulin; Z79.899 Other long term (current) drug therapy; Z88.0 Allergy status to penicillin
CPT/HCPCS: 36415; 71046; 80053; 81003; 81015; 83605; 83735; 84443; 84484; 84702; 85025; 87086; 93005; 99282